=== PATIENT | female | born 1960 | race Caucasian/White ===

== ENCOUNTER 2020-12-02 05:00 | Emergency (ER) | payer BC, SELFPAY ==
[2020-12-02] VITALS (10 sets, daily range): BP systolic 118–179; BP diastolic 68–111; PULSE 74–96; RESP 16–19; TEMP 36.4–36.8; O2SAT 95–100; BMI 19.5
--- NOTE | 2020-12-02 05:13 | CT_ITS ---
PROCEDURE INFORMATION: Exam: CT Cervical Spine Without Contrast Exam date and time: 12/02/2020 5:13 AM Age: 60 years old Clinical indication: Injury or trauma; Blunt trauma and laceration; Without foreign body; Injury details: Patient had a fall trying to transport for hip fracture please read CT stat TECHNIQUE: Imaging protocol: Computed tomography images of the cervical spine without contrast. Radiation optimization: All CT scans at this facility use at least one of these dose optimization techniques: automated exposure control; mA and/or kV adjustment per patient size (includes targeted exams where dose is matched to clinical indication); or iterative reconstruction. COMPARISON: CT HEAD/BRAIN WO CON 12/02/2020 5:27 AM FINDINGS: Vertebrae: No acute fracture. Normal alignment. Moderate mid and lower cervical spondylosis with loss of lordosis and convex right curvature. Soft tissues: Few atheromatous vascular calcifications. Lungs: Minor biapical fibrotic and emphysematous change. IMPRESSION: No acute fracture, subluxation or prevertebral swelling. Moderate mid and lower cervical spondylosis with loss of lordosis and convex right curvature. Other nonacute findings above.
--- NOTE | 2020-12-02 05:13 | CT_ITS ---
PROCEDURE INFORMATION: Exam: CT Head Without Contrast Exam date and time: 12/02/2020 5:13 AM Age: 60 years old Clinical indication: Injury or trauma; Blunt trauma (contusions or hematomas); With loss of consciousness; Not specified; Injury date: 12/01/20; Patient HX: Patient fell and hit head she has a laceration and needs transport for a broken hip from same fall please read [place] stat TECHNIQUE: Imaging protocol: Computed tomography of the head without contrast. 3D rendering (Not supervised by radiologist): MIP and/or 3D reconstructed images were created by the technologist. Radiation optimization: All CT scans at this facility use at least one of these dose optimization techniques: automated exposure control; mA and/or kV adjustment per patient size (includes targeted exams where dose is matched to clinical indication); or iterative reconstruction. COMPARISON: No relevant prior studies available. FINDINGS: Brain: Normal. No hemorrhage. Unremarkable white matter. No mass effect. Cerebral ventricles: No ventriculomegaly. Paranasal sinuses: Visualized sinuses are unremarkable. No fluid levels. Mastoid air cells: Visualized mastoid air cells are well aerated. Bones/joints: Unremarkable. No acute fracture. Soft tissues: Unremarkable. IMPRESSION: No acute intracranial abnormality.
--- NOTE | 2020-12-02 05:13 | XR_ITS ---
PROCEDURE INFORMATION: Exam: XR Chest Exam date and time: 12/02/2020 5:13 AM Age: 60 years old Clinical indication: Injury or trauma; Fall; Blunt trauma (contusions or hematomas); Injury date: 12/01/2020; Injury details: Patient fell at home hit head left side and hip and chest-- complains mostly of hip pain but did get stitches TECHNIQUE: Imaging protocol: XR of the chest. Views: 4 or more views. COMPARISON: CT CERVICAL SPINE WO CON 12/02/2020 5:30 AM FINDINGS: Lungs: Trace left CP angle atelectasis. Tiny calcified right upper lobe granuloma. No definite consolidation. Pleural spaces: Unremarkable. No pleural effusion. No pneumothorax. Heart/Mediastinum: Unremarkable. No cardiomegaly. Bones/joints: Unremarkable. IMPRESSION: 1. Trace left CP angle atelectasis. 2. Tiny calcified right upper lobe granuloma.
--- NOTE | 2020-12-02 05:13 | XR_ITS ---
PROCEDURE INFORMATION: Exam: XR Left Hip Exam date and time: 12/02/2020 5:13 AM Age: 60 years old Clinical indication: Injury or trauma; Fall; Blunt trauma (contusions or hematomas); Injury date: 12/01/20; Patient HX: Patient fell at home hit head left side and hip and chest-- complains mostly of hip pain but did get stitches in head TECHNIQUE: Imaging protocol: XR Left hip. Views: 2 or 3 views hip with pelvis when performed. COMPARISON: No relevant prior studies available. FINDINGS: Bones/joints: Left femoral neck fracture with varus angulation. No dislocation. Soft tissues: Unremarkable. IMPRESSION: Left femoral neck fracture.
--- NOTE | 2020-12-02 05:20 | [facility].EDFALL ---
ED Disposition Clinical Impression: Hip fracture Qualifiers: Encounter type: initial encounter Fracture type: closed Laterality: left Qualified Code(s): S72.002A - Fracture of unspecified part of neck of left femur, initial encounter for closed fracture Fall Qualifiers: Encounter type: initial encounter Qualified Code(s): W19.XXXA - Unspecified fall, initial encounter Disposition: Xfer Short-Term Hosp Condition on Discharge: Good Referrals: Provider,Referral, MD [Primary Care Provider] - - Critical Care Critical Care Time: No Attestation: On , the high probability of a clinically significant, sudden or life threatening deterioration of the following system(s) required my full and direct attention, intervention and personal management. The time I documented below is in addition to time spent performing reported procedures but includes the following listed in this critical care notation. Medical Decision Making - Medical Records Medical records reviewed: Yes: I reviewed the patient's medical records. - Tomás Inquiry Pt receiving controlled substance: No Vital Signs: 12/02/20 05:01 12/02/20 06:23 12/02/20 06:31 Temperature 97.6 F Temperature Source Oral Pulse Rate 77 84 Pulse Rate [Right] 89 Respiratory Rate 19 Blood Pressure 145/81 H 118/68 Blood Pressure [Right Arm] 179/111 H Blood Pressure Mean Blood Pressure Mean [Right Arm] 133 Blood Pressure Source [Right Arm] Automatic Cuff 02 Sat by Pulse Oximetry 100 95 97 Oxygen Delivery Method Room Air 12/02/20 07:00 12/02/20 07:30 12/02/20 08:00 Temperature Temperature Source Pulse Rate 82 96 H 86 Pulse Rate [Right] Respiratory Rate 17 16 17 Blood Pressure 123/82 128/73 147/77 H Blood Pressure [Right Arm] Blood Pressure Mean 93 99 101 Blood Pressure Mean [Right Arm] Blood Pressure Source [Right Arm] 02 Sat by Pulse Oximetry 99 99 97 Oxygen Delivery Method 12/02/20 08:30 Temperature Temperature Source Pulse Rate 86 Pulse Rate [Right] Respiratory Rate 17 Blood Pressure 126/81 Blood Pressure [Right Arm] Blood Pressure Mean 96 Blood Pressure Mean [Right Arm] Blood Pressure Source [Right Arm] 02 Sat by Pulse Oximetry 97 Oxygen Delivery Method - Lab Data Lab results reviewed: Yes: I reviewed the patient's lab results. Lab Results 12/02/20 05:06: Urine Color Yellow, Urine Appearance Clear, Urine pH 5.5, Ur Specific Owen 1.015, Urine Protein Negative, Urine Glucose (UA) Negative, Urine Ketones Negative, Urine Blood 2+, Urine Nitrate Negative, Urine Bilirubin Negative, Urine Urobilinogen 0.2, Ur Leukocyte Esterase Negative, Urine RBC 5-10, Urine WBC 3-5, Ur Squamous Epith Cells 5-10, Amorphous Sediment Trace 12/02/20 05:06: WBC 10.9 H, RBC 4.77, Hgb 15.5, Hct 47.1 H, MCV 98.7, MCH 32.6 H, MCHC 33.0, RDW 13.0, Plt Count 295, MPV 8.9, Neut % (Auto) 83.7 H, Lymph % (Auto) 11.8, [place] % (Auto) 3.8, Eos % (Auto) 0.3, Baso % (Auto) 0.4, Neut # (Auto) 9.1 H, Lymph # (Auto) 1.3, [place] # (Auto) 0.4, Eos # (Auto) 0.0, Baso # (Auto) 0.0, ESR 8 12/02/20 05:06: Sodium 139, Potassium 4.5, Chloride 104, Carbon Dioxide 25, Anion Gap 14.5, BUN 11, Creatinine 0.40 L, Estimated Creat Clear 134, Estimated GFR 163, Est GFR ( Amer) 197, Glucose 96, Calcium 9.5, Total Bilirubin 0.6, AST 71 H, ALT 35, Alkaline Phosphatase 104, Total Creatine Kinase 450 H, Troponin I < 0.01, C-Reactive Protein 2.8, Total Protein 8.4 H, Albumin 4.9, Globulin 3.5 H, Albumin/Globulin Ratio 1.4, Procalcitonin 0.036 12/02/20 05:06: PT 10.1, INR 0.89 L 12/02/20 06:23: SARS-CoV-2 (PCR) Not detected, Influenza A Untype (PCR) Not detected, Influenza Type B (PCR) Not detected Result diagrams: 12/02/20 05:06 12/02/20 05:06 Orders (Tests/Meds): ED MEDICATIONS Discontinued Medications Generic Name Dose Route Start Last Admin Trade Name Freq PRN Reason Stop Dose Admin Hydromorphone HCl 1 mg 12/02/20 06:26 12/02/20 06:26 Hydromorph
[2020-12-02 05:28] LABS: Microscopic, Urine URINE MICROSCOPIC (MICROSCOPIC)
[2020-12-02 05:33] LABS: Basophils % 0.4 % (0.1-2.0); Eosinophils % 0.3 % (0.1-12.0); Hematocrit 47.1 % (37.0-47.0); Hemoglobin 15.5 g/dL (12.2-16.2); Lymphocytes # 1.3 K/mm3 (0.7-4.5); Lymphocytes % 11.8 % (10-50); Mean Corpuscular Hemoglobin 32.6 pg (27.0-31.2); Mean Corpuscular Volume 98.7 fl (81-99); Mean Platelet Volume 8.9 fl (7.4-10.4); Monocytes # 0.4 K/mm3 (0.1-1.0); Monocytes % 3.8 % (1.7-9.3); Neutrophils # 9.1 K/mm3 (1.8-7.8); Neutrophils % 83.7 % (37.0-80.0); Platelet Count 295 K/mm3 (142-424); Red Blood Count 4.77 M/mm3 (4.20-5.40); White Blood Count 10.9 K/mm3 (4.8-10.8)
[2020-12-02 05:45] LABS: Appearance,Urine CLEAR (Clear); Bilirubin,Urine Negative (Negative); Blood, Urine 2+ (Negative); Color,Urine YELLOW (Yellow); Glucose,Urine (UA) Negative (Negative); Ketones,Urine Negative (Negative); Leukocyte Esterase,Urine Negative (Negative); Nitrate,Urine Negative (Negative); PH,Urine 5.5 (5.0-8.5); Protein,Urine Negative (Negative); Specific Gravity, Urine 1.015 (1.005-1.030); Urobilinogen,Urine 0.2 EU/dl (0.2)
[2020-12-02 05:47] LABS: Alanine Aminotransferase 35 U/L (12-78); Albumin Level 4.9 g/dl (3.5-5.0); Albumin/Globulin Ratio 1.4 (1.1-1.8); Alkaline Phosphatase 104 U/L (38-126); Anion Gap 14.5 mEq/L (5-15); Aspartate Amino Transferase 71 U/L (14-36); Bilirubin,Total 0.6 mg/dl (0.2-1.3); Blood Urea Nitrogen 11 mg/dl (7-17); Calcium 9.5 mg/dl (8.4-10.2); Carbon Dioxide 25 mmol/L (22.0-30.0); Chloride 104 mmol/L (98-107); Creatine Kinase 450 U/L (30-135); Creatinine Clearance Estimated 134 mL/min (50-200); Estimated Glomerular Filt Rate 163 ml/min (>60); GFR (African American) 197 ML/MIN (>60); Globulin 3.5 g/dL (1.3-3.2); Glucose 96 mg/dl (74-100); Potassium 4.5 mmoL/L (3.5-5.1); Sodium 139 mmol/L (136-145); Total Protein,Serum 8.4 g/dl (6.3-8.2)
[2020-12-02 05:50] LABS: Amorphous Sediment,Urine Trace /lpf
[2020-12-02 05:52] LABS: C-Reactive Protein 2.8 mg/L (0-4)
[2020-12-02 05:53] LABS: INR 0.89 (0.9-1.1); Prothrombin Time 10.1 seconds (10.1-12.5)
[2020-12-02 05:59] LABS: Erythrocyte Sedimentation Rate 8 mm/hr (0-30)
[2020-12-02 06:06] LABS: Procalcitonin 0.036 ng/mL (0.0-2.0)
[2020-12-02 06:11] LABS: Troponin I < 0.01 ng/ml (0.00-0.034)
--- NOTE | 2020-12-02 06:19 | ECG_ITS ---
APPROVED REPORT Exam: Resting ECG HR:80 bpm ECG Measurements Heart Rate 80 AXES AL 198 P 79 QRSd 94 QRS 65 QT 396 T 73 QTc 456 Conclusion Normal sinus rhythm Minimal voltage criteria for LVH Late r wave progression Abnormal ECG Electronically signed by : Alan Chau MD 12/03/2020 09:19:31
[2020-12-02 06:29] LABS: Coronavirus 19, PCR Not Detected (NotDetected); Influenza A, PCR Not Detected (NotDetected); Influenza B, PCR Not Detected (NotDetected)
--- NOTE | 2020-12-02 07:59 | PC.NURSE ---
[facility]
--- NOTE | 2020-12-02 08:00 | PC.NURSE ---
Called rad to check on status of CT reports
--- NOTE | 2020-12-02 08:05 | PC.NURSE ---
Dr. Cintron speaking with Dr. Thakkar.
--- NOTE | 2020-12-02 08:12 | PC.NURSE ---
Speaking with Tj Savage, getting ahold of the hospitalist.
--- NOTE | 2020-12-02 08:18 | PC.NURSE ---
Dr. Cintron speaking with Dr. Coffey at [facility].
--- NOTE | 2020-12-02 08:33 | PC.NURSE ---
Spoke with [facility] transfer system. [facility] has a bed. 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
--- NOTE | 2020-12-02 08:34 | PC.NURSE ---
Doctor Cintron speaking with [facility]. They have accepted.
--- NOTE | 2020-12-02 08:53 | PC.NURSE ---
Pt updated on POC. Agreeable at this time to be transferred to [facility] ER.
--- NOTE | 2020-12-02 08:56 | PC.NURSE ---
Called radiology. MELONY is reading CT scan now and XRAY results are in.
--- NOTE | 2020-12-02 09:36 | PC.NURSE ---
Called report to [facility]. Gave report to aura Nguyen RN
== END 2020-12-02 10:01 | disposition short-term general hospital (02) ==
PROVIDERS: Emergency Provider Emergency Medicine
DX: S72.002A Fracture of unspecified part of neck of left femur, initial encounter for closed fracture (principal); S01.312A Laceration without foreign body of left ear, initial encounter; W10.9XXA Fall (on) (from) unspecified stairs and steps, initial encounter; Y92.019 Unspecified place in single-family (private) house as the place of occurrence of the external cause; Z20.822 Contact with and (suspected) exposure to COVID-19
CPT/HCPCS: 12011; 70450; 71045; 72125; 73502; 80053; 81001; 82550; 84145; 84484; 85025; 85610; 85651; 86140; 93005; 96365; 96375; 99285; C9803; J2405; U0003; U0005